=== PATIENT | male | born 1940 ===

== ENCOUNTER 2017-03-11 06:33 | Day surgery (SDC) | payer MEDICARE, BC ==
[~2017-03-11] VITALS: Ht 172.7 cm; Wt 75.7 kg
[2017-03-11] VITALS (8 sets, daily range): BP systolic 116–135; BP diastolic 50–74
[~2017-03-11 06:33] MED LIST: ACYCLOVIR200 MG/51 ORAL; ALPHA LIPOIC A300 MG PO; CALCIUM600 M1 PO; DEXAMETHASONE6 MG PO; DOXIL2 MG/1 ML IV; VELCADE3.5 MG IJ; VITAMIN D1000 UNI1 ORAL
[2017-03-11] MEDS ORDERED: ceFAZolin sod 2 GM in D5W 110 ML IVPB ONE (07:00)
[2017-03-11] MEDS ORDERED: AMOXICILLIN125 MG ORAL (07:13)
[2017-03-11] MEDS ORDERED: Bupivacaine w/Epi 0.5% 30ml Vial INJ ONE (08:26)
[2017-03-11] MEDS ORDERED: Isovue-M 300 15ml INJ ONE ×2 (08:26→08:39)
[2017-03-11] MEDS ORDERED: Sterile Water Irrig 1000ml IRRIG ONE (08:30)
[2017-03-11] MEDS ORDERED: Neostigmine 1mg/ml 10ml Inj ONE (08:30)
[2017-03-11] MEDS ORDERED: LR 1000ml ONE (08:30)
[2017-03-11] MEDS ORDERED: Glycopyrrolate 0.2mg/ml 1ml Vial ONE (08:30)
[2017-03-11] MEDS ORDERED: fentaNYL 100 mcg/2 mL IV ONE (08:30)
[2017-03-11] MEDS ORDERED: NS Irrig 1000ml ONE (08:30)
[2017-03-11] MEDS ORDERED: Ketorolac 30mg Inj ONE (08:30)
[2017-03-11] MEDS ORDERED: Nimbex 2mg/ml Inj 10ML IVP ONE (08:30)
[2017-03-11] MEDS ORDERED: Propofol 10mg/ml 20ml IV ONE (08:30)
[2017-03-11] MEDS ORDERED: Succinylcholine 20mg/ml 10ml vial ONE (08:30)
[2017-03-11] MEDS ORDERED: Midazolam 2mg/2ml Inj ONE (08:30)
--- NOTE | 2017-03-11 08:34 | Pre-Procedure Note/Attestation ---
Pre-Procedure Note/Attestation Complete Prior to Procedure Procedure Narrative: T12 and L1 kyphoplasty Indications for Procedure Pre-Operative Diagnosis: T12, l1 pathologic compression fx Attestation I attest that I discussed the nature of the procedure; its benefits; risks and complications; and alternatives (and the risks and benefits of such alternatives ), prior to the procedure, with the patient (or the patient's legal sales representative sales manager). I attest that, if there was a reasonable possibility of needing a blood transfusion, the patient (or the patient's legal sales representative sales manager) was given the [facility] standardized written summary, pursuant to the Andrew Cirilo Blood Safety Act ([place] Health and Safety Code # 1645, as amended). I attest that I re-evaluated the patient just prior to the surgery and that there has been no change in the patient's H&P, except as documented below: ANATOLY GEORGES March 11, 2017 08:34
[2017-03-11] MEDS ORDERED: LR 1000ml 1,000 ML IVLG SCH (09:49)
--- NOTE | 2017-03-11 09:49 | Anethesia Preoperative Eval ---
Anesthesia Pre-op PMH/ROS General Date of Evaluation: March 11, 2017 Time of Evaluation: 08:16 Anesthesiologist: Brielle ASA Score: ASA 3 Mallampati Score Class I : Soft palate, uvula, fauces, pillars visible Class II: Soft palate, uvula, fauces visible Class III: Soft palate, base of uvula visible Class IV: Only hard plate visible Mallampati Classification: Class II Surgeon: Marcello Diagnosis: Compression Fx Th 12-L1 Surgical Procedure: Kyfoplasty t12-L1 Anesthesia History: none Family History: no anesthesia problems Allergies: Coded Allergies: No Known Allergies (Unverified , 03/07/17) Medications: see eMAR Past Medical History Cardiovascular: Denies: CAD, HTN, NV, arrhythmia, other, valve dz Pulmonary: Denies: COPD, COURTNEY, asthma, other Gastrointestinal/Genitourinary: Reports: GERD, Denies: CRI, ESRD, other Neurologic/Psychiatric: Reports: depression/anxiety, other - chronic pain, Denies: CVA, TIA, dementia Endocrine: Reports: steroids - on dexametazon, Denies: DM, hypothyroidism, other HEENT: Denies: IONE (L), IONE (R), cataract (L), cataract (R), glaucoma, other Hematology/Immune: Reports: anemia - mild, other - multiple myeloma, Denies: DVT, bleeding disorder Musculoskeletal/Integumentary: Reports: DJD, Denies: DDD, OA, RA, edema, other PMH Narrative: as above PSxH Narrative: Appendectomy Cholecystectomy Anesthesia Pre-op Phys. Exam Physician Exam Last Vital Signs Date Time Temp Pulse Resp B/P Pulse Ox O2 Delivery O2 Flow Rate FiO2 03/11/17 07:06 98.9 66 18 135/74 100 Room Air Constitutional: NAD Neurologic: CN 2-12 intact Cardiovascular: RRR, no M/R/G Respiratory: CTA Gastrointestinal: S/NT/ND Airway Exam Mallampati Score: Class II MO: limited Neck: stiff ROM: limited Teeth: missing Dentures: no lower, no upper Anesthesia Pre-op A/P Labs see chart Studies Pre-op Studies: EKG - NSR Risk Assessment & Plan Assessment: ASA 3 Plan: GA with ETT prone position neuromonitoring Status Change Before Surgery: No Pre-Antibiotics Drug: Ancef 1gr. Given Within 1 Hr of Incision: Yes Time Given: 09:15 GEORGIA DAVILA M.D. March 11, 2017 09:49
[2017-03-11] MEDS ORDERED: Hydromorphone 0.5mg/0.5ml inj IVP PRN (10:00)
[2017-03-11] MEDS ORDERED: Morphine Sulfate 2mg/ml Inj IVP PRN (10:00)
[2017-03-11] MEDS ORDERED: Midazolam 2mg/2ml Inj IVP PRN (10:00)
--- NOTE | 2017-03-11 10:10 | Brief Operative Note ---
Immediate Post Operative Note Operative Note Pre-op Diagnosis: T12, l1 pathologic compression fx Procedure: T12, L1 kyphoplasty Post-op Diagnosis: same as pre-op Findings: consistent w/pre-op dx studies Surgeon: darrian Anesthesiologist: shayla Anesthesia: general Specimen: none Complications: none Condition: stable Estimated Blood Loss: none Drains: none Implant(s) used?: Yes - pmma ANATOLY GEORGES March 11, 2017 10:10
--- NOTE | 2017-03-11 10:38 | Immediate Post-Op Evaluation ---
Immediate Post-Op Evalulation Immediate Post-Op Evalulation Procedure: Kyfoplasty T12-L1 Date of Evaluation: March 11, 2017 Time of Evaluation: 10:37 IV Fluids: 1000 Blood Products: none Estimated Blood Loss: 50 Urinary Output: none Blood Pressure Systolic: 130 Blood Pressure Diastolic: 60 Pulse Rate: 66 Respiratory Rate: 20 O2 Sat by Pulse Oximetry: 99 Temperature (Fahrenheit): 98.1 Pain Score (1-10): 2 Nausea: No Vomiting: No Complications none Patient Status: reacts, patent, extubated, none Hydration Status: adequate GEORGIA DAVILA M.D. March 11, 2017 10:38
--- NOTE | 2017-03-11 11:40 | 48 Hour Post Anesthesia Eval ---
Post Anesthesia Evaluation Procedure: Kyfoplasty T12-L1 Date of Evaluation: March 11, 2017 Time of Evaluation: 11:38 Blood Pressure Systolic: 128 0: 57 Pulse Rate: 64 Respiratory Rate: 20 Temperature (Fahrenheit): 97.6 O2 Sat by Pulse Oximetry: 98 Airway: patent Nausea: No Vomiting: No Pain Intensity: 2 Hydration Status: adequate Cardiopulmonary Status: stable Mental Status/LOC: patient returned to baseline Follow-up Care/Observations: n/a Post-Anesthesia Complications: none Follow-up care needed: ready to discharge GEORGIA DAVILA M.D. March 11, 2017 11:40
--- NOTE | 2017-03-11 13:15 | Operative Note - Dictated ---
DATE OF OPERATION: 03/11/2017 SURGEON: Olaf Armendariz M.D. PRESSURE SUPERVISOR: None. ANESTHESIOLOGIST: Alberto Hannah M.D. ANESTHESIA TYPE: General endotracheal anesthesia. POSTOPERATIVE DIAGNOSIS: 1. Pathologic compression fracture at T12 and L1. POSTOPERATIVE DIAGNOSIS: 1. Pathologic compression fracture at T12 and L1. PROCEDURE: 1. Cement kyphoplasty at the T12 and L1 levels. 2. Use of fluoroscopy. 3. Neurodiagnostic monitoring. ESTIMATED BLOOD LOSS: Minimal. COMPLICATIONS: None. FINDINGS: Soft bone consistent with diagnosis of multiple myeloma both T12 and L1. INDICATIONS: The patient is a very pleasant gentleman with chronic fracture at multiple levels however pain localized primarily to the thoracolumbar junction. Fractures noted in the mid thoracic levels, but also at the T12-L1 level where there has been progression of the kyphosis at that level. It was elected to perform a kyphoplasty to hopefully prevent further collapse and deformity. RISK NOTE: The patient was explained in detail the risks and benefits of surgery to include, but not be limited to, those of bleeding, infection, damage to nerves, vessels, tendons, anesthetic risk, allergic reaction, aspiration, and possibly . The patient understood and wished to proceed. OPERATIVE PROCEDURE IN DETAIL: The patient was taken to the operative suite after general anesthesia was induced. He was turned prone onto a radiolucent table with gel bolsters under his chest and abdomen. X-ray was brought in. Biplanar fluoroscopy was used. Once the levels were marked, back was prepped and draped in usual sterile fashion. The entry portal bilaterally at T12 and L1 were marked and verified fluoroscopically. The skin was infiltrated with Marcaine with epinephrine, 1.5 cm incision was made first at the right T12. The trocar was delivered to the site of the pedicle and a transpedicular approach was used on the right side at T12 and positioning of the trocar at the junction of the vertebral body and pedicle was verified. A hand-held drill was used to develop a path and then the kyphoplasty balloon was deployed. This was then repeated in a stepwise fashion at the left side T12 than on the right side L1 and than on the left side L1. Once satisfied with this, decision was made to inflate the balloon to the appropriate level. Once the balloon inflation was achieved approximately 4 mL per level the balloons were deflated and the bone void filler was deployed first at L1 then subsequently at T12 in a stepwise fashion. Approximately 4.5 mL of cement (3 trocar full of cement was delivered per side per level). Once the cement was hardened, the trocars were all removed. Please note, this was performed in its entirety under fluoroscopic guidance to ensure proper placement of instrumentation and cement. At this point, the wounds were closed using 4-0 Vicryl. Dermabond was applied. Sterile dressing was applied. The patient was awaiting extubation. [facility] Araseli Armendariz DR: Mickie JOB#: [id number] CC:
[2017-03-11] MEDS ORDERED: Tylenol #3 tab (300mg/30mg) ORAL PRN (15:01)
[2017-03-11] MEDS ORDERED: HYDROmorphone 1mg/ml Carpuject SUBQ PRN (15:01)
[2017-03-11] MEDS ORDERED: D5 1/2NS 1,000 ML IV SCH (15:01)
[2017-03-11] MEDS ORDERED: Norco 5mg/325mg tab ORAL PRN (15:01)
[2017-03-11] MEDS ORDERED: Metoclopramide 10mg/2ml Inj IVP PRN (15:01)
[2017-03-11] MEDS ORDERED: CIPROFLOXACIN500 M2 ORAL (17:34)
[2017-03-11] MEDS ORDERED: TAMSULOSIN HCL0.4 MG ORAL (17:34)
--- NOTE | 2017-03-12 07:52 | Diagnostic Imaging Report ---
Indication: PAIN, intraoperative Technique: Intraoperative images Comparison: None Findings: Intraoperative images demonstrate kyphoplasty at what are probably the T12 and L1 levels Impression: Intraoperative imaging, as described
== END 2017-03-11 12:15 | disposition home or self-care (01) ==
LOC: SDS 06:33 → EDSTATUS 08:30 → SDS 12:15
DX: M48.55XA Collapsed vertebra, not elsewhere classified, thoracolumbar region, initial encounter for fracture (principal); C90.00 Multiple myeloma not having achieved remission; K21.9 Gastro-esophageal reflux disease without esophagitis; D64.9 Anemia, unspecified; E55.9 Vitamin D deficiency, unspecified; F41.9 Anxiety disorder, unspecified; F32.9 Major depressive disorder, single episode, unspecified; M79.2 Neuralgia and neuritis, unspecified; M19.90 Unspecified osteoarthritis, unspecified site; G89.29 Other chronic pain; Z79.52 Long term (current) use of systemic steroids; K64.9 Unspecified hemorrhoids; Z90.49 Acquired absence of other specified parts of digestive tract
CPT/HCPCS: 22513; 72020; 76000; J0330; J0690; J1885; J2250; J2704; J2710; J3010; J7120; Q9967; 94003; 94150

== ENCOUNTER 2017-03-11 16:29 | Emergency (ER) | payer MEDICARE, BC ==
[~2017-03-11] VITALS: Ht 172.7 cm; Wt 77.1 kg
[~2017-03-11 16:29] MED LIST changes: +AMOXICILLIN125 MG ORAL
--- NOTE | 2017-03-11 16:50 | Emergency Room Report ---
History of Present Illness General Chief Complaint: To Be Triaged Source: Patient Present Illness HPI Patient had kyphoplasty earlier today That the patient went to chemotherapy He now reports that he has had the sensation of urinary retention Physical he is not able to fully Watters and feels increased pressure in the bladder Denies any fevers or chills denies any chest pain or shortness of breath Patient reports that he thinks he has had a problem for several months now With decreased flow of urination however it has progressed and feels significant at this time Allergies: Coded Allergies: No Known Allergies (Unverified , 03/07/17) Patient History Past Medical History: see triage record Pertinent Family History: none Reviewed Nursing Documentation: PMH: Agreed, PSxH: Agreed Nursing Documentation-PMH Hx Cardiac Problems: No Hx Cancer: Yes - Multiple myeloma Hx Gastrointestinal Problems: No Hx Neurological Problems: No Review of Systems All Other Systems: negative except mentioned in HPI Physical Exam Sp02 EP Interpretation: reviewed, normal General Appearance: well appearing, no apparent distress Head: normocephalic, atraumatic Eyes: bilateral eye EOMI, bilateral eye PERRL ENT: hearing grossly normal, normal pharynx, TMs + canals normal, uvula midline Neck: full range of motion, supple, no meningismus, no bony tend Respiratory: lungs clear, normal breath sounds, no rhonchi, no respiratory distress, no retraction, no accessory muscle use Cardiovascular #1: normal peripheral pulses, regular rate, rhythm, no edema, no gallop, no JVD, no murmur Gastrointestinal: normal bowel sounds, non tender, soft, no mass, no organomegaly, non-distended, no guarding, no hernia, no pulsatile mass, no rebound Genitourinary: no CVA tenderness Musculoskeletal: normal inspection Neurologic: oriented x3, responsive, logistics planning manager III-XII nml as tested, motor strength/ tone normal, sensory intact Psychiatric: mood/affect normal Skin: normal color, no rash, warm/dry, palpation normal Lymphatic: normal inspection, no adenopathy Medical Decision Making Diagnostic Impression: Primary Impression: Urinary retention Additional Impression: Watters catheter in place ER Course Multiple differentials considered Given the patient's retention of urine Watters catheter was placed initially patient had approximately 700 mL urine output and feels significantly better Case was discussed with the patient's primary physician who reports blood work from Friday was appropriate At this time patient does not have any back pain is afebrile Given the risk factors was placed on prophylactic antibiotics along with Flomax Patient is able to follow closely with urology Primary physician reports urology is in the same building the patient is able to follow closely Status: improved Disposition: HOME, SELF-CARE Condition: Improved Scripts Tamsulosin Hcl (TAMSULOSIN HCL*) 0.4 Mg Cap.er.24h 0.4 MG ORAL BEDTIME, #7 CAP Prov: AMBREEN HUTCHISON D.O. 03/11/17 Ciprofloxacin Hcl* (CIPROFLOXACIN HCL*) 500 Mg Tablet 500 MG ORAL Q12H, #10 TAB 0 Refills Prov: AMBREEN HUTCHISON D.O. 03/11/17 Additional Instructions: Patient is provided with the discharge instructions notified to follow up with primary doctor in the next 2-3 days otherwise return to the er with any worsening symptoms. Please note that this report is being documented using GIROPTIC technology. This can lead to erroneous entry secondary to incorrect interpretation by the dictating instrument. AMBREEN HUTCHISON D.O. March 11, 2017 16:50
[2017-03-11] MEDS ORDERED: TAMSULOSIN HCL0.4 MG ORAL (17:34)
[2017-03-11] MEDS ORDERED: CIPROFLOXACIN500 M2 ORAL (17:34)
[2017-03-11 18:10] VITALS: BP 121/65
== END 2017-03-11 17:35 | disposition home or self-care (01) ==
LOC: EMR 17:25
DX: R33.9 Retention of urine, unspecified (principal); Z96.0 Presence of urogenital implants; Z98.890 Other specified postprocedural states; Z85.9 Personal history of malignant neoplasm, unspecified
CPT/HCPCS: 51702; 99284